=== PATIENT | male | born 1935 | race Two or more races ===

== ENCOUNTER 2024-08-15 14:03 | Outpatient (AMB) | payer MEDICARE, MEDICAID, SELFPAY ==
--- NOTE | 2024-08-15 14:38 | PD.ORTHCLVIS ---
Vital signs 08/15/24 14:40 Height 1.63 m Height Method Stated Weight 65.317 kg Weight Measurement Method Standing Scale BMI 24.5 BP 152/86 H Blood Pressure Source Automatic Cuff Blood Pressure Location Right Upper Arm Position Sitting Respiration 18 Pulse 75 Pulse Source Monitor Temp 97.8 F Temp Source Temporal Artery Scan Pulse Oximetry (%) 98 Oxygen Delivery Method Room Air Med/Allergies Allergies & Medications Allergies No Known Drug Allergies Allergy (Verified 08/15/24 14:41) Medication Reconciliation clopidogrel 75 mg tablet 75 mg PO QDAY 07/27/23 [History Confirmed 08/15/24] finasteride 5 mg tablet 5 mg PO QDAY 07/27/23 [History Confirmed 08/15/24] hydrochlorothiazide 25 mg tablet 25 mg PO QDAY 07/27/23 [History Confirmed 08/15/24] linaclotide 72 mcg capsule (Linzess) 72 mcg PO QDAY 07/27/23 [History Confirmed 08/15/24] loratadine 10 mg tablet 10 mg PO QDAY 07/27/23 [History Confirmed 08/15/24] tamsulosin 0.4 mg capsule 0.4 mg PO QDAY 07/27/23 [History Confirmed 08/15/24] acetaminophen 650 mg/20.3 mL oral solution 650 mg PO Q6H PRN 03/10/24 [History Confirmed 08/15/24] apixaban 5 mg tablet (Eliquis) 5 mg PO BID 03/10/24 [History Confirmed 08/15/24] atorvastatin 80 mg tablet 80 mg PO QDAY 03/10/24 [History Confirmed 08/15/24] furosemide 20 mg tablet 20 mg PO Q OTHER DAY 03/10/24 [History Confirmed 08/15/24] levothyroxine 50 mcg capsule 50 mcg PO QDAY 03/10/24 [History Confirmed 08/15/24] Exam Exam Patient is in no acute distress and is cooperative with the examination today. Breathing is nonlabored. In no respiratory distress. Bilateral extremities were evaluated and demonstrates sensation intact to light touch. Palpable pedal pulses are present. No significant edema is present. Bilateral hips were examined. The patient has no pain with log roll of the hips. Internal rotation to 30 degrees and external rotation to 30 degrees is painless. Negative FADIR. The left knee was examined. The left knee is in varus alignment. Range of motion from 0-115 degrees. Knee is stable to varus and valgus as well as AP translation with <5mm. Patient has a negative McMurrays. There is no pain with patellofemoral compression and no crepitus noted. The knee is tender to palpation medially. The right knee was also examined. The right knee is in varus alignment. Range of motion from 0-120 degrees. Knee is stable to varus and valgus as well as AP translation with <5mm. Patient has a negative McMurrays. There is no pain with patellofemoral compression and no crepitus noted. The knee is tender to palpation medially. Assessment and Plan Problem List (1) Bilateral knee pain: Status: Acute Plan: Patient is a 89-year-old male with bilateral knee osteoarthritis. He has been getting cortisone injections every 3 months has been doing well with these. He would like bilateral knee cortisone injections today Recommend knee cortisone injections as patient would like to proceed with conservative treatment at this time. The risks and benefits of the procedure were reviewed with the patient and patient gave verbal consent to continue with the procedure. Procedure: performed by Dr. Grajeda Using sterile technique the Bilateral knees were thoroughly prepped with alcohol, and approximately 1 cc of Kenalog 40 mg/mL and 4 cc of 1% lidocaine was injected into each knee without resistance into the medial tibial femoral joint space. The patient tolerated the procedure. (2) Bilateral primary osteoarthritis of knee: Status: Acute Advanced Care Planning Discussion Advance care planning discussed with:: patient Office Procedures GNS Level of Care Nursing/Assessment Patient Status: Established Patient Nursing Assessment/Reassesment: Medication Reconciliation, Update PMH in EMR and Vital Signs Coordination of Care: Complex Care and Chronic Disease 1-5, Consent,records obtained, informed consent, Education Simp Pt/Fam, Results/Orders obtained and Staff clarify orders Established Patient Charge Established Patient Point Assignment: 90 Surgical Proc/IM SQ injection Major Surgical Procedure: Yes (knee injection) Medication Given Medication Given Medication Given: Yes Documented Dose Given: 1 Route: IM Medication Given Medication Given Medication Given: Yes Documented Dose Given: 2 Office Meds Xylocaine 10 mg/mL (1 %) injection solution Performing Provider: Angus Grajeda MD Performing Location: [facility] Administered by: Angus Grajeda MD on 08/15/24 14:43 Dose Route Admin Location Dispensed Lot Number Expiration Date [facility] [place] Instructor Looping 40 mL Infiltration 40 mL [id number] [employer]ES[employer] KABI triamcinolone acetonide 40 mg/mL suspension for injection Performing Provider: Angus Grajeda MD Performing Location: [facility] Administered by: Angus Grajeda MD on 08/15/24 14:43 Dose Route Admin Location Dispensed Lot Number Expiration Date [facility] [place] Instructor Looping 80 mg intra-articular 2 mL [id number] TEVA PARENTERAL 1 mg intra-articular 1 mL MA Intake Visit Data Collection New Patient or Established: Established Patient (seen at [facility] within 3 years) Seen by Clinical Staff ONLY (RN/MA): No Masonry Inspector Required: No Do You Feel Safe at Home: Yes Authorities Contacted: N/A Questionairres Past Medical History Past Medical History Have you ever been diagnosed with any of the following: Respiratory Problems Smoking: No Smoking Exposure: No Subjective Immunization / Flu Flu Vaccine in the Last 12 Months: No Flu Vaccine Exclusion Criteria: Refused by Patient History of Present Illness Chief complaint: Bilateral knee arthritis 89-year-old Male with bilateral knee pain and bilateral knee arthritis. He is not in the [facility]. He would like to get bilateral knee injections today Pain Pain level (0-10): 5 Ambulatory data Ambulatory device: walker Review of Systems Review of Systems: All systems negative unless otherwise noted in HPI.
[2024-08-15 14:40] VITALS: BP 152/86; PULSE 75; RESP 18; TEMP 36.6; O2SAT 98; BMI 24.5
== END 2024-08-15 14:49 | disposition home or self-care (01) ==
LOC: HODSRG 14:03
PROVIDERS: PCP Physician Assistant Medical; Referring Provider Physician Assistant Medical; Supervising Provider Orthopaedic Surgery Adult Reconstructive Orthopaedic Surgery; Visit Provider Orthopaedic Surgery Adult Reconstructive Orthopaedic Surgery
DX: M25.561 Pain in right knee (principal); M25.562 Pain in left knee; M17.0 Bilateral primary osteoarthritis of knee
CPT/HCPCS: 20610; 99213; J3301; J3490; G0463